=== PATIENT | female | born 1940 | race Native Hawaiian/Other Pacific Islander ===

== ENCOUNTER 2016-08-15 09:41 | Outpatient (CLI) | payer OTHER ==
[~2016-08-15] VITALS: Ht 146.1 cm; Wt 68.0 kg
[2016-08-15 10:00] VITALS: BP 134/63; TEMP 98.4
[2016-08-15 10:35] VITALS: BP 127/62; TEMP 98.4
== END 2016-08-15 19:12 | disposition home or self-care (01) ==
LOC: INF 09:41
DX: M81.0 Age-related osteoporosis without current pathological fracture (principal)
CPT/HCPCS: 36415; 82310; 96372; J0897

== ENCOUNTER 2016-10-09 08:56 | Outpatient (CLI) | payer OTHER ==
[2016-10-09 09:08] LABS: PLATELET COUNT 255 K/uL (152-353)
[2016-10-09 10:24] LABS: POTASSIUM 4.3 mmol/L (3.6-5.2); SODIUM 137 mmol/L (136-145)
== END 2016-10-09 19:33 | disposition home or self-care (01) ==
LOC: LABW 08:56
PROVIDERS: Psychiatry & Neurology Psychiatry
DX: F33.1 Major depressive disorder, recurrent, moderate (principal); F42.2 Mixed obsessional thoughts and acts; Z79.899 Other long term (current) drug therapy; Z51.81 Encounter for therapeutic drug level monitoring
CPT/HCPCS: 36415; 80053; 80061; 84443; 85027

== ENCOUNTER 2016-10-24 09:52 | Emergency (ER) | payer OTHER ==
[~2016-10-24] VITALS: Ht 147.3 cm; Wt 68.0 kg
[2016-10-24 09:55] VITALS: TEMP 97.5
[2016-10-24 10:55] VITALS: BP 169/74
== END 2016-10-24 11:00 | disposition home or self-care (01) ==
LOC: ED 09:52
DX: S50.02XA Contusion of left elbow, initial encounter (principal); S50.312A Abrasion of left elbow, initial encounter; W18.39XA Other fall on same level, initial encounter; Y92.098 Other place in other non-institutional residence as the place of occurrence of the external cause
CPT/HCPCS: 99282

== ENCOUNTER 2016-12-15 17:53 | Outpatient (CLI) | payer OTHER ==
[2016-12-15] MEDS ORDERED: BIOTIN MAXI10000 MCG PO (19:10)
[2016-12-15] MEDS ORDERED: SERT100T PO (19:10)
[2016-12-15] MEDS ORDERED: LIPITOR10 MG PO (19:12)
[2016-12-15] MEDS ORDERED: QUET300T PO (19:12)
[2016-12-15] MEDS ORDERED: ALPR0.5T24 PO (19:12)
[2016-12-15] MEDS ORDERED: DONE5TAB PO (19:13)
[2016-12-15] MEDS ORDERED: ZANTAC300 MG PO (19:13)
[2016-12-15] MEDS ORDERED: GLIM2TAB PO (19:14)
[2016-12-15] MEDS ORDERED: WELLBUTRIN150 MG PO (19:14)
[2016-12-15] MEDS ORDERED: NEXIUM40 M1 PO (19:15)
[2016-12-15] MEDS ORDERED: LEVO0.0218 PO (19:17)
== END 2016-12-15 18:02 | disposition short-term general hospital (02) ==
LOC: AMB 17:53
DX: E16.1 Other hypoglycemia (principal)
CPT/HCPCS: A0425; A0427

== ENCOUNTER 2016-12-15 18:08 | Observation (INO) | payer OTHER ==
[~2016-12-15] VITALS: Ht 147.3 cm; Wt 70.8 kg
[2016-12-15 18:10] VITALS: BP 136/89; TEMP 97.8
[2016-12-15 18:47] LABS: PLATELET COUNT 172 K/uL (152-353)
[2016-12-15 18:57] LABS: POTASSIUM 4.2 mmol/L (3.6-5.2); SODIUM 139 mmol/L (136-145)
[2016-12-15] MEDS ORDERED: BIOTIN MAXI10000 MCG PO (19:10)
[2016-12-15] MEDS ORDERED: SERT100T PO (19:10)
[2016-12-15] MEDS ORDERED: ALPR0.5T24 PO (19:12)
[2016-12-15] MEDS ORDERED: LIPITOR10 MG PO (19:12)
[2016-12-15] MEDS ORDERED: QUET300T PO (19:12)
[2016-12-15] MEDS ORDERED: ZANTAC300 MG PO (19:13)
[2016-12-15] MEDS ORDERED: DONE5TAB PO (19:13)
[2016-12-15] MEDS ORDERED: GLIM2TAB PO (19:14)
[2016-12-15] MEDS ORDERED: WELLBUTRIN150 MG PO (19:14)
[2016-12-15] MEDS ORDERED: NEXIUM40 M1 PO (19:15)
[2016-12-15] MEDS ORDERED: LEVO0.0218 PO (19:17)
[2016-12-16] VITALS (7 sets, daily range): BP systolic 117–166; BP diastolic 47–79; TEMP 97.8–99; Ht 147.3 cm; Wt 70.8 kg
[2016-12-17] VITALS: BP 101/60; TEMP 98.5
[2016-12-17 04:00] VITALS: BP 147/72; TEMP 98.3
[2016-12-17 05:33] LABS: PLATELET COUNT 262 K/uL (152-353)
[2016-12-17 05:51] LABS: POTASSIUM 4.1 mmol/L (3.6-5.2); SODIUM 137 mmol/L (136-145)
[2016-12-17 08:00] VITALS: BP 140/68; TEMP 97.8
[2016-12-17 12:00] VITALS: BP 139/66; TEMP 98.3
== END 2016-12-17 17:12 | disposition home or self-care (01) ==
LOC: ED 18:08 → MED/SURG 20:32 → ED 20:56 → MED/SURG 12-17 17:12
PROVIDERS: Emergency Medicine; ADMIT Specialist
DX: E11.649 Type 2 diabetes mellitus with hypoglycemia without coma (principal); E03.8 Other specified hypothyroidism; K21.9 Gastro-esophageal reflux disease without esophagitis
CPT/HCPCS: 36415; 80048; 81000; 82948; 83036; 83735; 85027; 96365; 96366; 99220; 99283; G0378; J1885

== ENCOUNTER 2016-12-25 11:16 | Outpatient (CLI) | payer OTHER ==
[~2016-12-25 11:16] MED LIST: ALPR0.5T24 PO; BIOTIN MAXI10000 MCG PO; DONE5TAB PO; GLIM2TAB PO; LEVO0.0218 PO; LIPITOR10 MG PO; NEXIUM40 M1 PO; QUET300T PO; SERT100T PO; WELLBUTRIN150 MG PO; ZANTAC300 MG PO
== END 2016-12-25 13:00 | disposition home or self-care (01) ==
LOC: MAMMO 11:16
DX: Z12.31 Encounter for screening mammogram for malignant neoplasm of breast (principal)
CPT/HCPCS: G0202-TC

== ENCOUNTER 2017-01-03 12:18 | Outpatient (CLI) | payer OTHER ==
[2017-01-03 12:50] LABS: PLATELET COUNT 284 K/uL (152-353)
[2017-01-03 13:13] LABS: POTASSIUM 4.4 mmol/L (3.6-5.2); SODIUM 137 mmol/L (136-145)
== END 2017-01-03 13:30 | disposition home or self-care (01) ==
LOC: LAB 12:18
PROVIDERS: Nurse Practitioner Family
DX: E11.9 Type 2 diabetes mellitus without complications (principal); E78.00 Pure hypercholesterolemia, unspecified; E55.9 Vitamin D deficiency, unspecified; E03.8 Other specified hypothyroidism
CPT/HCPCS: 80053; 80061; 82306; 82607; 83036; 84439; 84443; 85027

== ENCOUNTER 2017-02-15 10:21 | Outpatient (CLI) | payer OTHER ==
[~2017-02-15] VITALS: Ht 147.3 cm; Wt 68.0 kg
[2017-02-15 10:32] VITALS: BP 141/66; TEMP 97.6
== END 2017-02-15 11:07 | disposition home or self-care (01) ==
LOC: INF 10:21
DX: M81.0 Age-related osteoporosis without current pathological fracture (principal)
CPT/HCPCS: 36415; 82310; 96372; J0897

== ENCOUNTER → 2017-07-18 11:08 | Outpatient (CLI) | payer OTHER ==
[~2017-07-18 11:08] MED LIST changes: +LEVO-T25 MCG PO; +VITAMIN DE1000 MCG/M IJ
== END | disposition home or self-care (01) ==
LOC: AMB 11:08
DX: E16.1 Other hypoglycemia (principal)

== ENCOUNTER 2017-07-18 16:30 | Inpatient (IN) | payer OTHER ==
[~2017-07-18] VITALS: Ht 147.3 cm; Wt 65.3 kg
[2017-07-18 16:30] VITALS: BP 133/68; TEMP 98.6
[~2017-07-18 16:30] MED LIST changes: -LEVO-T25 MCG PO; -VITAMIN DE1000 MCG/M IJ
[2017-07-18 17:50] LABS: PLATELET COUNT 218 K/uL (152-353)
[2017-07-18 18:04] LABS: SODIUM 135 mmol/L (136-145)
[2017-07-18 22:28] VITALS: BP 128/53; TEMP 98.7; Ht 147.3 cm; Wt 65.3 kg
[2017-07-19] VITALS: BP 110/74; TEMP 99
[2017-07-19] MEDS ORDERED: LEVO-T25 MCG PO (01:14)
[2017-07-19] MEDS ORDERED: VITAMIN DE1000 MCG/M IJ (01:18)
[2017-07-19 04:00] VITALS: BP 131/54; TEMP 98.1
[2017-07-19 08:00] VITALS: BP 116/51; TEMP 99
[2017-07-19 12:00] VITALS: BP 133/49; TEMP 98.9
[2017-07-19 16:00] VITALS: BP 132/63; TEMP 99
[2017-07-19 20:00] VITALS: BP 131/56; TEMP 99.2
[2017-07-20] VITALS: BP 107/52; TEMP 99.4
[2017-07-20 04:00] VITALS: BP 114/75; TEMP 97.9
[2017-07-20 08:00] VITALS: BP 141/54; TEMP 98.8
[2017-07-20 12:00] VITALS: BP 140/58; TEMP 98.6
[2017-07-20 16:00] VITALS: BP 134/57; TEMP 98.6
[2017-07-20 20:00] VITALS: BP 135/54; TEMP 98.9
[2017-07-21] VITALS: BP 140/56; TEMP 98.3
[2017-07-21 04:00] VITALS: BP 110/46; TEMP 97.6
[2017-07-21 05:38] LABS: PLATELET COUNT 247 K/uL (152-353)
[2017-07-21 05:55] LABS: POTASSIUM 3.4 mmol/L (3.6-5.2)
[2017-07-21 08:00] VITALS: BP 114/62; TEMP 97.4
[2017-07-21 12:00] VITALS: BP 109/54; TEMP 97.6
[2017-07-21 16:00] VITALS: BP 121/55; TEMP 97
[2017-07-21 20:00] VITALS: BP 123/75; TEMP 98.7
[2017-07-22] VITALS: BP 110/46; TEMP 97.7
[2017-07-22 04:00] VITALS: BP 128/72; TEMP 98.4
[2017-07-22 08:00] VITALS: BP 128/57; TEMP 97
== END 2017-07-22 12:25 | disposition home or self-care (01) | DRG 293 ==
LOC: ED 16:30 → MED/SURG 19:45
PROVIDERS: Internal Medicine
DX: I50.41 Acute combined systolic (congestive) and diastolic (congestive) heart failure (principal); J81.0 Acute pulmonary edema; E78.00 Pure hypercholesterolemia, unspecified; K21.9 Gastro-esophageal reflux disease without esophagitis; E03.8 Other specified hypothyroidism; F03.90 Unspecified dementia, unspecified severity, without behavioral disturbance, psychotic disturbance, mood disturbance, and anxiety; F41.8 Other specified anxiety disorders; I10 Essential (primary) hypertension; E78.4 Other hyperlipidemia
CPT/HCPCS: 36415; 36600; 80053; 82805; 83036; 83735; 83880; 84484; 85027; 93306; 94760; 96372; 96374; 96375; 99283; J1650; J1940; J3490

== ENCOUNTER 2017-09-19 08:59 | Outpatient (CLI) | payer OTHER ==
[~2017-09-19 08:59] MED LIST changes: +LEVO-T25 MCG PO; +VITAMIN DE1000 MCG/M IJ
[2017-09-19 09:28] LABS: PLATELET COUNT 254 K/uL (152-353)
== END 2017-09-19 19:20 | disposition home or self-care (01) ==
LOC: LABW 08:59
PROVIDERS: Psychiatry & Neurology Psychiatry
DX: F33.1 Major depressive disorder, recurrent, moderate (principal); F42.2 Mixed obsessional thoughts and acts; Z79.899 Other long term (current) drug therapy; Z51.81 Encounter for therapeutic drug level monitoring
CPT/HCPCS: 36415; 80053; 80061; 84443; 85027

== ENCOUNTER 2017-09-21 10:58 | Outpatient (CLI) | payer OTHER ==
[~2017-09-21] VITALS: Ht 147.3 cm; Wt 66.7 kg
== END 2017-09-21 19:39 | disposition home or self-care (01) ==
LOC: INF 10:58
DX: M81.0 Age-related osteoporosis without current pathological fracture (principal)
CPT/HCPCS: 96372; J0897

== ENCOUNTER 2017-12-31 11:10 | Emergency (ER) | payer OTHER ==
[~2017-12-31] VITALS: Ht 147.3 cm; Wt 68.0 kg
[2017-12-31 11:15] VITALS: TEMP 98.1
[2017-12-31 13:20] LABS: PLATELET COUNT 297 K/uL (152-353)
[2017-12-31 14:56] LABS: POTASSIUM 5.5 mmol/L (3.6-5.2)
[2017-12-31 15:15] VITALS: BP 132/76
[2017-12-31] MEDS ORDERED: ONDA2INJ2 PO (15:42)
== END 2017-12-31 15:53 | disposition home or self-care (01) ==
LOC: ED 11:10
DX: R11.2 Nausea with vomiting, unspecified (principal); R19.7 Diarrhea, unspecified
CPT/HCPCS: 36415; 74022; 80053; 83690; 85027; 99283

== ENCOUNTER 2018-01-08 09:42 | Outpatient (CLI) | payer OTHER ==
[~2018-01-08 09:42] MED LIST changes: +ONDA2INJ2 PO
== END 2018-01-08 22:21 | disposition home or self-care (01) ==
LOC: CT 09:42
DX: N20.0 Calculus of kidney (principal)

== ENCOUNTER 2018-05-06 10:01 | Outpatient (CLI) | payer OTHER ==
[~2018-05-06] VITALS: Ht 147.3 cm; Wt 66.7 kg
== END 2018-05-06 19:55 | disposition home or self-care (01) ==
LOC: INF 10:01
DX: M81.0 Age-related osteoporosis without current pathological fracture (principal)
CPT/HCPCS: 36415; 82310; 96372; J0897

== ENCOUNTER 2018-09-07 15:23 | Emergency (ER) | payer OTHER ==
[~2018-09-07] VITALS: Ht 147.3 cm; Wt 66.7 kg
[2018-09-07 16:30] VITALS: BP 148/636; TEMP 97.6
[2018-09-07 19:07] LABS: PLATELET COUNT 253 K/uL (152-353)
[2018-09-07 20:31] LABS: POTASSIUM 4.9 mmol/L (3.6-5.2)
== END 2018-09-07 20:56 | disposition home or self-care (01) ==
LOC: ED 15:23
PROVIDERS: Emergency Medicine
DX: S39.012A Strain of muscle, fascia and tendon of lower back, initial encounter (principal)
CPT/HCPCS: 36415; 80053; 81000; 85027; 99283; J1885; J2405

== ENCOUNTER 2018-09-18 10:05 | Outpatient (CLI) | payer OTHER ==
[2018-09-18 11:07] LABS: PLATELET COUNT 287 K/uL (152-353)
[2018-09-18 11:34] LABS: POTASSIUM 4.9 mmol/L (3.6-5.2)
== END 2018-09-18 23:59 | disposition home or self-care (01) ==
LOC: LABW 10:05
PROVIDERS: Internal Medicine
DX: E11.9 Type 2 diabetes mellitus without complications (principal); E55.9 Vitamin D deficiency, unspecified; D64.9 Anemia, unspecified
CPT/HCPCS: 36415; 80053; 80061; 81000; 82043; 82306; 82550; 82570; 83036; 83540; 83735; 84439; 84443; 85027

== ENCOUNTER 2018-09-19 12:00 | Outpatient (CLI) | payer OTHER | END 2018-09-19 20:36 | disposition home or self-care (01) | LOC: LAB 12:00 | DX: E11.9 Type 2 diabetes mellitus without complications (principal); E55.9 Vitamin D deficiency, unspecified; D64.9 Anemia, unspecified | CPT/HCPCS: 81000; 82043; 82570 ==

== ENCOUNTER 2018-09-26 11:05 | Outpatient (CLI) | payer OTHER | END 2018-09-26 20:38 | disposition home or self-care (01) | LOC: US 11:05 | DX: R09.89 Other specified symptoms and signs involving the circulatory and respiratory systems (principal) ==

== ENCOUNTER 2018-10-09 11:10 | Outpatient (CLI) | payer OTHER | END 2018-10-09 19:31 | disposition home or self-care (01) | LOC: CT 11:10 | DX: F03.90 Unspecified dementia, unspecified severity, without behavioral disturbance, psychotic disturbance, mood disturbance, and anxiety (principal) ==

== ENCOUNTER 2018-10-21 09:25 | Outpatient (CLI) | payer OTHER ==
[2018-10-21 10:12] LABS: PLATELET COUNT 254 K/uL (152-353)
[2018-10-21 10:37] LABS: POTASSIUM 4.5 mmol/L (3.6-5.2)
== END 2018-10-21 22:32 | disposition home or self-care (01) ==
LOC: LABW 09:25
PROVIDERS: Psychiatry & Neurology Psychiatry
DX: F33.1 Major depressive disorder, recurrent, moderate (principal); F29 Unspecified psychosis not due to a substance or known physiological condition; F06.8 Other specified mental disorders due to known physiological condition; Z79.899 Other long term (current) drug therapy
CPT/HCPCS: 36415; 80053; 80061; 82607; 82746; 84443; 85027

== ENCOUNTER 2018-11-29 12:39 | Emergency (ER) | payer OTHER ==
[~2018-11-29] VITALS: Ht 147.3 cm; Wt 66.7 kg
[2018-11-29 14:45] VITALS: BP 132/60; TEMP 98
== END 2018-11-29 14:46 | disposition home or self-care (01) ==
LOC: ED 12:39
DX: S00.83XA Contusion of other part of head, initial encounter (principal); R90.82 White matter disease, unspecified; W01.198A Fall on same level from slipping, tripping and stumbling with subsequent striking against other object, initial encounter; Y92.511 Restaurant or cafe as the place of occurrence of the external cause
CPT/HCPCS: 99283

== ENCOUNTER 2018-12-25 09:42 | Outpatient (CLI) | payer OTHER ==
[~2018-12-25] VITALS: Ht 147.3 cm; Wt 63.5 kg
[2018-12-25 10:55] VITALS: BP 121/59; TEMP 97.5
== END 2018-12-25 20:03 | disposition home or self-care (01) ==
LOC: INF 09:42
DX: M81.0 Age-related osteoporosis without current pathological fracture (principal)
CPT/HCPCS: 36415; 82310; 96372; J0897

== ENCOUNTER 2019-01-16 09:09 | Outpatient (CLI) | payer OTHER ==
[2019-01-16 09:23] LABS: PLATELET COUNT 245 K/uL (152-353)
[2019-01-16 09:44] LABS: POTASSIUM 4.6 mmol/L (3.6-5.2)
== END 2019-01-16 19:41 | disposition home or self-care (01) ==
LOC: LABW 09:09
PROVIDERS: Internal Medicine
DX: E03.8 Other specified hypothyroidism (principal); E11.9 Type 2 diabetes mellitus without complications
CPT/HCPCS: 36415; 80053; 80061; 81000; 82043; 82570; 83036; 84439; 84443; 85027

== ENCOUNTER 2019-07-12 02:28 | Outpatient (CLI) | payer OTHER | END 2019-07-12 02:36 | disposition short-term general hospital (02) | LOC: AMB 02:28 | DX: R41.82 Altered mental status, unspecified (principal); E16.1 Other hypoglycemia | CPT/HCPCS: A0425; A0427 ==

== ENCOUNTER 2019-07-12 02:43 | Emergency (ER) | payer OTHER ==
[~2019-07-12] VITALS: Ht 147.3 cm; Wt 63.5 kg
[2019-07-12 03:30] VITALS: TEMP 96.4
[2019-07-12 03:35] LABS: PLATELET COUNT 224 K/uL (152-353)
[2019-07-12 03:43] LABS: POTASSIUM 4.1 mmol/L (3.6-5.2)
[2019-07-12 04:30] VITALS: BP 134/67
== END 2019-07-12 04:36 | disposition home or self-care (01) ==
LOC: ED 02:43
PROVIDERS: Family Medicine
DX: E11.649 Type 2 diabetes mellitus with hypoglycemia without coma (principal)
CPT/HCPCS: 36415; 80053; 81000; 85027; 99283

== ENCOUNTER 2019-07-28 02:17 | Outpatient (CLI) | payer OTHER | END 2019-07-28 02:26 | disposition short-term general hospital (02) | LOC: AMB 02:17 | DX: E16.1 Other hypoglycemia (principal); R41.0 Disorientation, unspecified | CPT/HCPCS: A0425; A0427 ==

== ENCOUNTER 2019-07-28 02:26 | Inpatient (IN) | payer OTHER ==
[~2019-07-28] VITALS: Ht 147.3 cm; Wt 63.5 kg
[2019-07-28] VITALS (7 sets, daily range): BP systolic 115–154; BP diastolic 39–80; TEMP 96.8–99.5; Ht 147.3 cm; Wt 63.5 kg
[2019-07-28 03:27] LABS: PLATELET COUNT 238 K/uL (152-353)
[2019-07-28 03:50] LABS: POTASSIUM 4.2 mmol/L (3.6-5.2); SODIUM 139 mmol/L (136-145)
[2019-07-28 03:52] LABS: PARTIAL THROMBOPLASTIN TIME 22.1 SECONDS (24.5-33.6)
[2019-07-28 10:48] LABS: PLATELET COUNT 287 K/uL (152-353)
[2019-07-28 19:09] LABS: PLATELET COUNT 259 K/uL (152-353)
[2019-07-29 04:00] VITALS: BP 150/64; TEMP 98.2
[2019-07-29 06:10] LABS: PLATELET COUNT 238 K/uL (152-353)
[2019-07-29 08:00] VITALS: BP 149/54; TEMP 98.2
[2019-07-29 12:00] VITALS: BP 149/54; TEMP 98.2
[2019-07-29 16:00] VITALS: BP 116/42; TEMP 97.9
[2019-07-29 20:00] VITALS: BP 136/55; TEMP 98.1
[2019-07-30] VITALS: BP 153/62; TEMP 98
[2019-07-30 04:00] VITALS: BP 119/62; TEMP 97.3
[2019-07-30 05:51] LABS: PLATELET COUNT 228 K/uL (152-353)
[2019-07-30 06:03] LABS: POTASSIUM 4.4 mmol/L (3.6-5.2)
[2019-07-30 08:09] VITALS: BP 136/48; TEMP 97.7
== END 2019-07-30 11:27 | disposition home or self-care (01) | DRG 639 ==
LOC: ED 02:42 → MED/SURG 04:20
PROVIDERS: Hospitalist; ADMIT Internal Medicine
DX: E11.649 Type 2 diabetes mellitus with hypoglycemia without coma (principal); E03.8 Other specified hypothyroidism; G92 Toxic encephalopathy; E11.42 Type 2 diabetes mellitus with diabetic polyneuropathy; F41.1 Generalized anxiety disorder; K21.9 Gastro-esophageal reflux disease without esophagitis; F03.90 Unspecified dementia, unspecified severity, without behavioral disturbance, psychotic disturbance, mood disturbance, and anxiety; D51.0 Vitamin B12 deficiency anemia due to intrinsic factor deficiency
CPT/HCPCS: 36415; 80053; 80320; 81000; 82550; 82962; 83880; 84484; 85027; 85610; 85730; 93005; 99283; J1650

== ENCOUNTER 2019-08-07 12:38 | Outpatient (CLI) | payer OTHER | END 2019-08-07 19:35 | disposition home or self-care (01) | LOC: LAB 12:38 | DX: R30.0 Dysuria (principal) | CPT/HCPCS: 81000 ==

== ENCOUNTER 2019-08-12 14:55 | Outpatient (CLI) | payer OTHER ==
[2019-08-12] MEDS ORDERED: DONEPEZIL HYDRO10 M1 PO (15:31)
[2019-08-12] MEDS ORDERED: IRBESARTAN150 MG PO (15:47)
[2019-08-12] MEDS ORDERED: GLIM2TAB PO (15:47)
[2019-08-12] MEDS ORDERED: ASPIRIN/ENTERIC81 MG PO (15:48)
[2019-08-12] MEDS ORDERED: MEMANTINE HCL10 MG PO (15:48)
[2019-08-12] MEDS ORDERED: FURO40TA93 PO (15:49)
[2019-08-12] MEDS ORDERED: DOK100 MG PO (15:49)
[2019-08-12] MEDS ORDERED: SEROQUEL100 MG PO (15:50)
[2019-08-12] MEDS ORDERED: MOBIC7.5 M1 PO (15:51)
[2019-08-12] MEDS ORDERED: ARIPIPRAZOLE OD10 MG PO (15:51)
[2019-08-12] MEDS ORDERED: NEURONTIN 100M100 MG PO (15:52)
[2019-08-12] MEDS ORDERED: ACID REDUCER20 MG PO (15:52)
== END 2019-08-12 15:00 | disposition short-term general hospital (02) ==
LOC: AMB 14:55
DX: R41.82 Altered mental status, unspecified (principal)
CPT/HCPCS: A0425; A0427

== ENCOUNTER 2019-08-12 15:02 | Observation (INO) | payer OTHER ==
[~2019-08-12] VITALS: Ht 147.3 cm; Wt 63.3 kg
[2019-08-12 15:02] VITALS: BP 123/52; TEMP 98.1
[2019-08-12] MEDS ORDERED: DONEPEZIL HYDRO10 M1 PO (15:31)
[2019-08-12 15:34] LABS: PLATELET COUNT 194 K/uL (152-353)
[2019-08-12 15:42] LABS: POTASSIUM 3.8 mmol/L (3.6-5.2)
[2019-08-12] MEDS ORDERED: IRBESARTAN150 MG PO (15:47)
[2019-08-12] MEDS ORDERED: GLIM2TAB PO (15:47)
[2019-08-12] MEDS ORDERED: MEMANTINE HCL10 MG PO (15:48)
[2019-08-12] MEDS ORDERED: ASPIRIN/ENTERIC81 MG PO (15:48)
[2019-08-12] MEDS ORDERED: FURO40TA93 PO (15:49)
[2019-08-12] MEDS ORDERED: DOK100 MG PO (15:49)
[2019-08-12] MEDS ORDERED: SEROQUEL100 MG PO (15:50)
[2019-08-12] MEDS ORDERED: MOBIC7.5 M1 PO (15:51)
[2019-08-12] MEDS ORDERED: ARIPIPRAZOLE OD10 MG PO (15:51)
[2019-08-12] MEDS ORDERED: NEURONTIN 100M100 MG PO (15:52)
[2019-08-12] MEDS ORDERED: ACID REDUCER20 MG PO (15:52)
[2019-08-12 21:58] VITALS: BP 123/54; TEMP 98.1; Ht 147.3 cm; Wt 63.3 kg
[2019-08-13] VITALS: BP 100/52; TEMP 97.8
[2019-08-13 04:00] VITALS: BP 110/56; TEMP 98.9
[2019-08-13 08:00] VITALS: BP 126/54; TEMP 98.7
== END 2019-08-13 13:45 | disposition other institution (70) ==
LOC: ED 15:05 → MED/SURG 20:10
PROVIDERS: Family Medicine; ADMIT Internal Medicine
DX: F03.91 Unspecified dementia, unspecified severity, with behavioral disturbance (principal); E11.40 Type 2 diabetes mellitus with diabetic neuropathy, unspecified; E03.8 Other specified hypothyroidism; K21.9 Gastro-esophageal reflux disease without esophagitis; D51.0 Vitamin B12 deficiency anemia due to intrinsic factor deficiency
CPT/HCPCS: 36415; 80053; 81000; 85027; 99220; 99284; G0378; J3490